=== PATIENT | female | born 1980 | race American Indian/Alaskan Native ===

== ENCOUNTER 2017-04-21 23:14 | Emergency (ER) | payer OTHER ==
[2017-04-21 23:15] VITALS: BMI 23.8
[2017-04-21 23:35] VITALS: TEMP 98.3; O2SAT 100
[2017-04-22] MEDS ORDERED: Oxycodone/Acetaminophen 5/325 mg Tab PO STA (00:01)
[2017-04-22 00:41] LABS: BASO # 0.04 K/mm3 (0.0-2.0); BASO % 0.6 % (0.0-3.0); EOS # 0.1 (0.0-0.7); EOS % 1.8 % (1.5-5.0); GRAN # 3.22 (1.4-6.5); HEMATOCRIT 29.4 % (36.0-48.0); LYMPH # 2.7 (1.2-3.4); LYMPH % 40.7 % (22.0-35.0); MEAN CORPUSCULAR HGB CONC 33.3 g/dl (31.0-37.0); MEAN PLATELET VOLUME 11.4 fl (7.0-11.0); MONO # 0.5 (0.1-0.6); MONO % 7.9 % (1.0-6.0); RED CELL DISTRIBUTION WIDTH 16.2 % (11.5-14.5); WHITE BLOOD COUNT 6.6 10^3/ul (4.5-11.0)
[2017-04-22] MEDS ORDERED: Sodium Chloride 0.9% 500 ML IV STA (00:45)
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
[2017-04-22 00:47] LABS: INR 1.14 (0.93-1.08)
[2017-04-22 00:52] LABS: ALKALINE PHOSPHATASE 49 U/L (38-126); ALT/SGPT 25 U/L (7-56); AST/SGOT 21 U/L (14-36); BILIRUBIN,TOTAL 0.3 mg/dL (0.2-1.3); BLOOD UREA NITROGEN 16 mg/dL (7-21); CALCIUM 9.1 mg/dL (8.4-10.5); CARBON DIOXIDE 24 mmol/L (21-33); CHLORIDE 107 mmol/L (98-107); GFR AFRICAN-AMERICAN > 60; GLUCOSE,RANDOM 92 mg/dL (70-110); POTASSIUM 3.4 mmol/L (3.6-5.0); SODIUM 141 mmol/L (132-148); TOTAL PROTEIN 7.4 g/dL (5.8-8.3)
[2017-04-22] MEDS ORDERED: Iohexol 350 MG/100 ML VIAL ONE (01:04)
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
[2017-04-22 02:18] LABS: URINE BILIRUBIN NEGATIVE (NEGATIVE); URINE BLOOD SMALL (NEGATIVE); URINE GLUCOSE (UA) NEGATIVE (NEGATIVE); URINE KETONE NEGATIVE (NEGATIVE); URINE LEUKOCYTE ESTERASE MODERATE Leu/uL (NEGATIVE); URINE PROTEIN TRACE mg/dL (<30 mg/dL); URINE UROBILINOGEN 0.2 E.U./dL (<1 E.U./dL)
[2017-04-22 02:24] LABS: URINE APPEARANCE SL CLOUDY (CLEAR); URINE COLOR YELLOW (YELLOW)
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
[2017-04-22 02:33] LABS: URINE EPITHELIAL CELLS 0 - 2 /hpf (0-5); URINE WBC 20 - 25 /hpf (0-6)
[2017-04-22 02:36] LABS: URINE BACTERIA SMALL (NEG)
[2017-04-22 02:40] VITALS: BP 98/56; PULSE 66; RESP 19
--- NOTE | 2017-04-22 10:42 | RAD ---
PROCEDURE: Left Knee Radiographs. HISTORY: Pain. No history of recent/ related trauma provided COMPARISON: None. FINDINGS: BONES: Normal. No fracture. JOINTS: Normal. No osteoarthritis. JOINT EFFUSION: None. OTHER FINDINGS: None. IMPRESSION: Normal radiographs of the left knee. Concordant results with the preliminary interpretation rendered by the emergency department physician procedure.
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
== END 2017-04-22 02:41 | disposition home or self-care (01) ==
LOC: ED 23:14
DX: S09.90XA Unspecified injury of head, initial encounter (principal); V49.9XXA Car occupant (driver) (passenger) injured in unspecified traffic accident, initial encounter; M25.562 Pain in left knee; R10.9 Unspecified abdominal pain; M54.2 Cervicalgia
CPT/HCPCS: 70450; 71260; 72125; 73562; 73610; 74177; 80053; 81001; 85025; 85610; 85730; 99285; J7040; Q9967

== ENCOUNTER 2017-05-26 18:20 | Emergency (ER) | payer MEDICARE, OTHER ==
[2017-05-26 18:24] VITALS: BMI 25.6
[2017-05-26 18:27] VITALS: RESP 18
[2017-05-26] MEDS ORDERED: Sodium Chloride 0.9% 1,000 ML IV STA (18:52)
--- NOTE | 2017-05-26 19:00 | ED PDOC ---
Arrival/HPI - General Chief Complaint: Flu-like Symptoms Time Seen by Provider: 05/26/17 18:51 Historian: Patient - History of Present Illness Narrative History of Present Illness (Text): 05/26/17 18:57 36 y/o female, no pmh, nkda, c/o cough/fever/bodyache x 2 days. Productive coughing, associated with fever tmax 101F, associated with bodyache and fatigue , no night sweat, no dizziness, no change in vision, no numbness or tingling, no other medical or psychological complaint. Past Medical History - Provider Review Nursing Documentation Reviewed: Yes - Infectious Disease Hx of Infectious Diseases: None - Tetanus Immunization Tetanus Immunization: Unknown - Past Medical History Past Medical History: No Previous - Psychiatric Hx Substance Use: No - Past Surgical History Past Surgical History: No Previous - Anesthesia Hx Anesthesia: No - Suicidal Assessment Feels Threatened In Home Enviroment: No Family/Social History - Physician Review Nursing Documentation Reviewed: Yes Family/Social History: Unknown Family HX Smoking Status: Never Smoked Hx Alcohol Use: No Hx Substance Use: No Hx Substance Use Treatment: No Allergies/Home Meds Allergies/Adverse Reactions: Allergies No Known Allergies Allergy (Verified 05/06/14 15:47) Review of Systems - Review of Systems Constitutional: Fatigue, Fevers Eyes: absent: Vision Changes ENT: absent: Hearing Changes Respiratory: Cough. absent: SOB, Sputum Cardiovascular: absent: Chest Pain Gastrointestinal: absent: Abdominal Pain, Nausea, Vomiting Genitourinary Female: absent: Dysuria Musculoskeletal: Myalgias. absent: Arthralgias, Back Pain Neurological: absent: Headache, Dizziness Psychiatric: absent: Anxiety, Depression Physical Exam Vital Signs Reviewed: Yes Vital Signs Temp Pulse Resp BP Pulse Ox 05/26/17 22:24 70 18 116/67 100 05/26/17 20:45 98.1 F 70 18 97/57 L 100 05/26/17 18:26 98.7 F 81 18 121/77 99 Temperature: Afebrile Blood Pressure: Normal Pulse: Regular Respiratory Rate: Normal Appearance: Positive for: Well-Appearing, Non-Toxic, Comfortable Pain Distress: Mild Mental Status: Positive for: Alert and Oriented X 3 - Systems Exam Head: Present: Atraumatic, Normocephalic Pupils: Present: PERRL Extroacular Muscles: Present: EOMI Conjunctiva: Present: Normal Mouth: Present: Moist Mucous Membranes Neck: Present: Normal Range of Motion Respiratory/Chest: Present: Clear to Auscultation, Good Air Exchange. No: Respiratory Distress, Accessory Muscle Use, Wheezes, Decreased Breath Sounds, Rales, Retracting, Rhonchi, Tachypneic, Tender to Palpation Cardiovascular: Present: Regular Rate and Rhythm, Normal S1, S2. No: Murmurs Abdomen: Present: Normal Bowel Sounds. No: Tenderness, Distention, Peritoneal Signs Back: Present: Normal Inspection Upper Extremity: Present: Normal Inspection. No: Cyanosis, Edema Lower Extremity: Present: Normal Inspection. No: Edema Neurological: Present: GCS=15, Speech Normal, Motor Func Grossly Intact, Gait Normal, Memory Normal Skin: Present: Warm, Dry, Normal Color. No: Rashes Psychiatric: Present: Alert, Oriented x 3, Normal Insight, Normal Concentration Medical Decision Making ED Course and Treatment: 05/26/17 18:59 -labs/ua/rapid flu -IVF/tylenol -Observe and reassess 05/26/17 21:58 -Labs are non-significant -Rapid flu is negative but clinical suspicious is high -UA show no UTI -Chest xray show no active disease -Pt. is afebrile, feels much better after the supportive care with tylenol/ nsaids/IVF, stable to be discharged home. -Tamiflu ordered -Pt. is eating and drinking well, no abdominal or pelvic pain, no headache or neck pain, no neck stiffness. -Discharge home with tamiflu, zithromax, promethazine dm, tylenol, stay hydrated , bed rest, follow up with your own pmd within 2 days, return to the ER for any new or worsening signs or symptoms. - Lab Interpretations Lab Results: 05/26/17 19:20 05/26/17 19:20 Lab Results 05/26/17 19:20: Sodium 138, Potassium 3.8, Chloride 104, Carbon Dioxide 25, Anion Gap 12, BUN 5 L, Creatinine 0.7, Est GFR ( Amer) > 60, Est GFR (Non -Af Amer) > 60, Random Glucose 80, Calcium 9.2, Total Bilirubin 0.3, AST 26, ALT 21, Alkaline Phosphatase 46, Total Protein 7.3, Albumin 3.6, Globulin 3.6, Albumin/Globulin Ratio 1.0 L 05/26/17 19:20: WBC 3.6 L D, RBC 3.89, Hgb 10.5 L, Hct 31.0 L, MCV 79.7 L, MCH 27.0, MCHC 33.9, RDW 16.8 H, Plt Count 197, Gran % 49.6 L, Lymph % (Auto) 31.7, [place] % (Auto) 17.8 H, Eos % (Auto) 0.3 L, Baso % (Auto) 0.6, Gran # 1.79, Lymph # 1.1 L, [place] # 0.6, Eos # 0.0, Baso # 0.02 05/26/17 19:00: Urine Color Yellow, Urine Appearance Clear, Urine pH 6.5, Ur Specific [place] 1.015, Urine Protein 30 H, Urine Glucose (UA) Negative, Urine Ketones Negative, Urine Blood Negative, Urine Nitrate Negative, Urine Bilirubin Negative, Urine Urobilinogen 0.2, Ur Leukocyte Esterase Negative, Urine RBC 0 - 2, Urine WBC 1 - 3, Ur Epithelial Cells 4 - 5, Urine Bacteria Many, Urine Other Mucus 05/26/17 18:49: Influenza Typ A,B (EIA) Negative for flu a/b - RAD Interpretation Radiology Orders: 05/26/17 19:40 CHEST PORTABLE [RAD] Stat no active pulmonary disease Labor Expediter: Radiologist - Medication Orders Current Medication Orders: Discontinued Medications Acetaminophen (Tylenol 325mg Tab) 650 mg PO STAT STA Stop: 05/26/17 18:53 Last Admin: 05/26/17 19:51 Dose: 650 mg MAR Pain/Vitals Document 05/26/17 19:51 EQ (Rec: 05/26/17 19:51 EQ [facility] [place] [facility] [id number] Pain Reassessment Is This A Pain ReAssessment? No Sleep Is patient sleeping during reassessment? No Presence of Pain Presence of Pain Yes Sodium Chloride (Sodium Chloride 0.9%) 1,000 mls @ 999 mls/hr IV .Q1H1M STA Stop: 05/26/17 19:52 Last Admin: 05/26/17 19:51 Dose: 999 mls/hr eMAR Start Stop Document 05/26/17 19:51 EQ (Rec: 05/26/17 19:51 EQ [facility] [place] [facility] [id number]) Intravenous Solution Start Date 05/26/17 Start Time 19:51 Sodium Chloride (Sodium Chloride 0.9%) 500 mls @ 999 mls/hr IV .Q31M STA Stop: 05/26/17 21:25 Last Admin: 05/26/17 21:19 Dose: 999 mls/hr eMAR Start Stop Document 05/26/17 21:19 YP (Rec: 05/26/17 21:19 YP [facility]) Intravenous Solution Start Date 05/26/17 Start Time 21:19 End Date 05/26/17 End time 21:49 Total Infusion Time 30 Ketorolac Tromethamine (Toradol) 30 mg IVP STAT STA Stop: 05/26/17 20:56 Last Admin: 05/26/17 21:19 Dose: 30 mg MAR Pain Assessment Document 05/26/17 21:19 YP (Rec: 05/26/17 21:19 YP [facility]) Pain Reassessment Is this a pain reassessment? Yes Sleep Is patient sleeping during reassessment? No Presence of Pain Presence of Pain Yes IVP Administration Document 05/26/17 21:19 YP (Rec: 05/26/17 21:19 YP [facility]) Charges for Administration # of IVP Administrations 1 Oseltamivir Phosphate (Tamiflu Cap) 75 mg PO BID [place] PRN Reason: Protocol Stop: 05/31/17 20:56 Oseltamivir Phosphate (Tamiflu Cap) 75 mg PO STAT STA PRN Reason: Protocol Stop: 05/26/17 20:57 Last Admin: 05/26/17 21:19 Dose: 75 mg - PA / [employer] / Resident Statement MD/DO has reviewed & agrees with the documentation as recorded. Disposition/Present on Arrival - Present on Arrival Any Indicators Present on Arrival: No History of DVT/PE: No History of Uncontrolled Diabetes: No Urinary Catheter: No History of Decub. Ulcer: No History Surgical Site Infection Following: None - Disposition Have Diagnosis and Disposition been Completed?: Yes Diagnosis: Upper respiratory infection, Flu-like symptoms Disposition: HOME/ ROUTINE Disposition Time: 22:01 Patient Plan: Discharge Condition: IMPROVED Additional Instructions: -Discharge home with tamiflu, zithromax, promethazine dm, tylenol, stay hydrated , bed rest, follow up with your own pmd within 2 days, return to the ER for any new or worsening signs or symptoms. Prescriptions: Acetaminophen [Tylenol 325mg tab] 2 tab PO QID PRN #30 tab PRN Reason: Other Azithromycin [Zithromax] 250 mg PO DAILY #6 tab Oseltamivir Phosphate [Tamiflu] 75 mg PO BID #10 capsule Promethazine DM [Phenergan DM Syrup] 5 ml PO QID PRN #250 ml PRN Reason: Other Referrals: [facility] [place] [Outside] - Follow up with primary Forms: WORK NOTE
[2017-05-26 19:35] LABS: PH,URINE 6.5 (4.7-8.0); URINE BILIRUBIN NEGATIVE (NEGATIVE); URINE BLOOD NEGATIVE (NEGATIVE); URINE GLUCOSE (UA) NEGATIVE (NEGATIVE); URINE LEUKOCYTE ESTERASE NEGATIVE Leu/uL (NEGATIVE); URINE NITRATE NEGATIVE (NEGATIVE); URINE PROTEIN 30 mg/dL (<30 mg/dL); URINE UROBILINOGEN 0.2 E.U./dL (<1 E.U./dL)
[2017-05-26 19:36] LABS: URINE APPEARANCE CLEAR (CLEAR); URINE COLOR YELLOW (YELLOW)
[2017-05-26 20:14] LABS: BASO # 0.02 K/mm3 (0.0-2.0); BASO % 0.6 % (0.0-3.0); EOS % 0.3 % (1.5-5.0); GRAN # 1.79 (1.4-6.5); GRAN % 49.6 % (50.0-68.0); HEMOGLOBIN 10.5 g/dL (12.0-16.0); LYMPH # 1.1 (1.2-3.4); LYMPH % 31.7 % (22.0-35.0); MEAN CELL VOLUME 79.7 fl (80.0-105.0); MEAN CORPUSCULAR HGB CONC 33.9 g/dl (31.0-37.0); MONO # 0.6 (0.1-0.6); MONO % 17.8 % (1.0-6.0); PLATELET COUNT 197 10^3/uL (120.0-450.0); RBC 3.89 10^6/uL (3.5-6.1); RED CELL DISTRIBUTION WIDTH 16.8 % (11.5-14.5); WHITE BLOOD COUNT 3.6 10^3/ul (4.5-11.0)
[2017-05-26 20:17] LABS: ALBUMIN 3.6 g/dL (3.0-4.8); ALT/SGPT 21 U/L (7-56); AST/SGOT 26 U/L (14-36); BLOOD UREA NITROGEN 5 mg/dL (7-21); CALCIUM 9.2 mg/dL (8.4-10.5); GFR AFRICAN-AMERICAN > 60; GFR NON-AFRICAN AMERICAN > 60
[2017-05-26 20:17] LABS: URINE BACTERIA MANY (NEG); URINE RBC 0 - 2 /hpf (0-2)
[2017-05-26 20:54] VITALS: PULSE 70; TEMP 98.1; O2SAT 100
[2017-05-26] MEDS ORDERED: Sodium Chloride 0.9% 500 ML IV STA (20:55)
[2017-05-26 22:25] VITALS: BP 116/67
--- NOTE | 2017-05-27 08:35 | RAD ---
HISTORY: medical clearance COMPARISON: No prior. FINDINGS: LUNGS: The lungs are well inflated and clear. PLEURA: No significant pleural effusion identified, no pneumothorax apparent. CARDIOVASCULAR: Normal. OSSEOUS STRUCTURES: No significant abnormalities. VISUALIZED UPPER ABDOMEN: Normal. OTHER FINDINGS: None. IMPRESSION: No active pulmonary disease.
== END 2017-05-26 22:25 | disposition home or self-care (01) ==
LOC: ED 18:20
DX: J11.1 Influenza due to unidentified influenza virus with other respiratory manifestations (principal)
CPT/HCPCS: 71045; 80053; 81001; 85025; 87804; 96374; 99285; J1885; J7040